=== PATIENT | male | born 1990 | race Caucasian/White ===

== ENCOUNTER 2020-04-20 18:36 | Emergency (ER) | payer OTHER ==
[2020-04-20] MEDS ORDERED: METHYLPHENIDATE54 M3 PO (20:14)
[2020-04-20] MEDS ORDERED: CYCLOBENZAPRINE5 M3 PO (22:25)
[2020-04-20] MEDS ORDERED: Motrin,Rufen800 MG PO (22:25)
== END 2020-04-20 22:34 | disposition home or self-care (01) ==
LOC: ED 18:36
DX: S29.012A Strain of muscle and tendon of back wall of thorax, initial encounter (principal); Z79.899 Other long term (current) drug therapy; X50.0XXA Overexertion from strenuous movement or load, initial encounter; Y93.89 Activity, other specified; Y92.89 Other specified places as the place of occurrence of the external cause; Y99.8 Other external cause status